=== PATIENT | female | born 1960 | race Caucasian/White ===

== ENCOUNTER 2023-04-12 12:50 | Emergency (ER) | payer OTHER ==
[2023-04-12] MEDS ORDERED: Acetaminophen/HYDROcodone 325-5 MG Tab PO ONE ×2 (12:51→15:25)
== END 2023-04-12 15:36 | disposition home or self-care (01) ==
LOC: FB.ED 12:50
DX: S52.552A Other extraarticular fracture of lower end of left radius, initial encounter for closed fracture (principal); S80.212A Abrasion, left knee, initial encounter; F17.200 Nicotine dependence, unspecified, uncomplicated; J44.9 Chronic obstructive pulmonary disease, unspecified; Z88.0 Allergy status to penicillin; Z88.6 Allergy status to analgesic agent; W00.9XXA Unspecified fall due to ice and snow, initial encounter
CPT/HCPCS: 29125; 73090; 73110; 99284; A9270